=== PATIENT | male | born 1965 | race Caucasian/White ===

== ENCOUNTER → 2021-05-11 | Outpatient (CLI) | payer BC ==
[~2021-05-11] VITALS: Ht 193 cm; Wt 123.0 kg
[~2021-05-11] MED LIST: ALEVE 220MG220 MG PO; BETAMETHASONE DIPROPIONATE TP; CALCIPOTRIENE TP; LIPITOR 10MG10 MG; MOBIC15 MG PO; NO HOME MEDICATIONS
[2021-05-11 13:54] VITALS: BP 133/79; PULSE 67; TEMP 98.6
[2021-05-11 15:25] VITALS: BP 137/95; PULSE 71
== END ==
LOC: COL.RAD 12:52
DX: M51.36 Other intervertebral disc degeneration, lumbar region (principal)
CPT/HCPCS: J3301

== ENCOUNTER → 2021-06-17 | Outpatient (CLI) | payer BC | LOC: MHCPAIN 09:06 | DX: M47.817 Spondylosis without myelopathy or radiculopathy, lumbosacral region (principal); M53.3 Sacrococcygeal disorders, not elsewhere classified; M54.16 Radiculopathy, lumbar region | CPT/HCPCS: G0463 ==

== ENCOUNTER → 2021-07-07 | Outpatient (CLI) | payer BC | LOC: MHCPAIN 12:26 | DX: M47.817 Spondylosis without myelopathy or radiculopathy, lumbosacral region (principal); M54.50 Low back pain, unspecified ==

== ENCOUNTER → 2021-09-10 | Outpatient (CLI) | payer BC | LOC: MHCPAIN 13:34 | DX: M47.817 Spondylosis without myelopathy or radiculopathy, lumbosacral region (principal); M54.50 Low back pain, unspecified; M53.3 Sacrococcygeal disorders, not elsewhere classified | CPT/HCPCS: G0463 ==

== ENCOUNTER → 2021-09-28 | Outpatient (CLI) | payer BC | LOC: MHCPAIN 12:05 | DX: M47.817 Spondylosis without myelopathy or radiculopathy, lumbosacral region (principal); M54.50 Low back pain, unspecified; M53.3 Sacrococcygeal disorders, not elsewhere classified | CPT/HCPCS: G0463; J1100; J2250; J2405; J3010 ==

== ENCOUNTER → 2021-12-14 | Outpatient (CLI) | payer BC | LOC: MHCPAIN 13:03 | DX: M47.816 Spondylosis without myelopathy or radiculopathy, lumbar region (principal); M53.3 Sacrococcygeal disorders, not elsewhere classified; M54.16 Radiculopathy, lumbar region | CPT/HCPCS: G0463 ==

== ENCOUNTER → 2021-12-31 | Outpatient (CLI) | payer BC | LOC: MHCPAIN 07:50 | DX: M47.817 Spondylosis without myelopathy or radiculopathy, lumbosacral region (principal); M54.16 Radiculopathy, lumbar region; M53.3 Sacrococcygeal disorders, not elsewhere classified | CPT/HCPCS: J1100; Q9967 ==

== ENCOUNTER → 2022-01-19 | Outpatient (CLI) | payer BC | LOC: MHCPAIN 07:41 | DX: M47.816 Spondylosis without myelopathy or radiculopathy, lumbar region (principal); M53.3 Sacrococcygeal disorders, not elsewhere classified; M54.50 Low back pain, unspecified | CPT/HCPCS: G0463 ==

== ENCOUNTER → 2022-02-17 | Outpatient (CLI) | payer BC | LOC: MHCPAIN 11:00 | DX: M47.896 Other spondylosis, lumbar region (principal); M54.50 Low back pain, unspecified; M53.3 Sacrococcygeal disorders, not elsewhere classified | CPT/HCPCS: G0463 ==

== ENCOUNTER → 2022-02-22 | Outpatient (CLI) | payer BC | LOC: MHCPAIN 12:14 | DX: M47.817 Spondylosis without myelopathy or radiculopathy, lumbosacral region (principal); M53.3 Sacrococcygeal disorders, not elsewhere classified; M54.16 Radiculopathy, lumbar region | CPT/HCPCS: J1100; Q9967 ==

== ENCOUNTER 2023-09-03 08:56 | Emergency (ER) | payer BC ==
[~2023-09-03] VITALS: Ht 193 cm; Wt 125.0 kg
[2023-09-03 09:04] VITALS: TEMP 97.9
[2023-09-03] MEDS ORDERED: LR 1,000 ML IV ONE (09:15)
[2023-09-03] MEDS ORDERED: Ondansetron 4 MG/2 ML VIAL IV ONE (09:15)
[2023-09-03] MEDS ORDERED: Morphine 4 MG/ML VIAL IV ONE (09:15)
[2023-09-03] MEDS ORDERED: ZANAFLEX CAPSULE2 MG (09:16)
[2023-09-03 09:22] LABS: BASO % 0.3 % (0.0-2.0); EOS # 0.1 K/mm3 (0.0-0.7); EOS % 0.8 % (0.0-4.0); GRAN # 5.7 K/mm3 (1.4-6.5); GRAN % 64.4 % (42.2-75.2); HEMATOCRIT 46.8 % (42.0-52.0); HEMOGLOBIN 16.5 g/dl (13.5-18.0); LYMPH # 2.6 K/mm3 (1.2-3.4); LYMPH % 29.2 % (20.0-51.0); MEAN CELL VOLUME 85 fl (80.0-100.0); MEAN CORPUSCULAR HEMOGLOBIN 30 pg (27-31); MEAN CORPUSCULAR HGB CONC 35 g/dl (33.0-37.0); MEAN PLATELET VOLUME 9.9 fl (7.4-10.4); MONO # 0.4 K/mm3 (0.1-0.6); PLATELET COUNT 215 K/mm3 (130-400); RED BLOOD COUNT 5.51 M/mm3 (4.20-5.60); REDCELL DISTRIBUTION WIDTH-CV 12.3 % (11.5-14.5)
[2023-09-03] MEDS ORDERED: Ketorolac 15 MG/ML VIAL IV ONE (09:30)
[2023-09-03 10:02] LABS: ALBUMIN 4.2 gm/dL (3.5-5.0); BILIRUBIN,TOTAL 0.8 mg/dL (0.2-1.2); C-REACTIVE PROTEIN 0.11 mg/dL (0.00-0.50); CALCIUM 9.7 mg/dL (8.4-10.2); CREATININE, serum 1.09 mg/dL (0.72-1.25); POTASSIUM 4.1 mmol/L (3.5-4.5); TOTAL PROTEIN 7.2 gm/dL (6.2-8.1)
[2023-09-03] MEDS ORDERED: Morphine 4 MG/ML VIAL IV PRN (11:30)
[2023-09-03] MEDS ORDERED: PERCOCET 325 MG1 TA3 PO (12:36)
[2023-09-03] MEDS ORDERED: FLOMAX 0.40.4 MG/CAP PO (12:37)
[2023-09-03 12:51] VITALS: BP 142/88; PULSE 73
== END 2023-09-03 12:51 | disposition home or self-care (01) ==
LOC: COL.ER 08:56
PROVIDERS: Family Medicine
DX: N20.1 Calculus of ureter (principal)
CPT/HCPCS: J1885; J2270; J2405; J7120